=== PATIENT | female | born 1975 | race Caucasian/White ===

== ENCOUNTER → 2022-03-03 | Outpatient (CLI) | payer MEDICARE, OTHER ==
--- NOTE | 2022-03-05 15:16 | MR ---
EXAMINATION TYPE: MR brain and iac wo/w con DATE OF EXAM: 03/03/2022 COMPARISON: None HISTORY: Right asymmetric SNHL, tinnitus, vertigo. TECHNIQUE: Multiplanar, multisequence images of the brain and brainstem, internal auditory canals is performed w ithout and with IV contrast, utilizing 11 mL intravenous Gadavist . Small xaybz-xs-knxx and high reso lution images obtained through the internal auditory canals FINDINGS: Diffusion weighted images demonstrate no evidence of a recent infarct or other diffusion ab normality. There is no extra-axial fluid collection. Along the left lateral ventricle there is a foc al area of gliosis, hyperintensity and inversion recovery T2-weighted sequences. The ventricular syst em and cisternal spaces are remarkable for some focal ectasia of the left lateral ventricle, may be e x vacuo phenomenon. The brain volume is age appropriate. Internal auditory canals show no mass or internal auditory canal enhancement. There is no cerebellopo ntine angle mass. Midline structures demonstrate normal morphology. The craniocervical junction appears within normal limits. Post contrast images demonstrate no abnormal enhancement. The dural venous sinuses appear pa tent. The visualized sinuses are remarkable for inflammatory change in the maxillary sinus on the lef t, ethmoid air cells and the globes are intact. IMPRESSION: Chronic small vessel ischemic changes, some focal encephalomalacia is suspected as descri bed. No evident internal auditory canal mass.
== END | disposition home or self-care (01) ==
LOC: RADMRIMAIN 14:34
PROVIDERS: ATTEND Otolaryngology
DX: I67.82 Cerebral ischemia (principal); G93.89 Other specified disorders of brain
CPT/HCPCS: 70553; A9585